=== PATIENT | male | born 1990 | race Two or more races ===

== ENCOUNTER 2020-09-02 19:01 | Emergency (ER) | payer OTHER ==
[2020-09-02 19:09] VITALS: BP 136/89; PULSE 66; TEMP 98.4; BMI 21.5
[2020-09-02] MEDS ORDERED: IBUPROFEN 600 MG TABLET (FP) PO ONE ×2 (20:08→20:16)
== END 2020-09-02 20:30 | disposition home or self-care (01) ==
LOC: JER 19:01
DX: M25.562 Pain in left knee (principal)
CPT/HCPCS: 73562-TC-LT-FY; 99283-25